=== PATIENT | male | born 1960 ===

== ENCOUNTER 2021-02-26 15:47 | Outpatient (RCR) | payer MEDICARE ==
[~2021-02-26 15:47] MED LIST: MINERAL OIL/PETROLAT/GLYCERI 6OZ BTL ONE
== END 2021-03-19 ==
LOC: WCC 15:47
PROVIDERS: ATTEND Internal Medicine Infectious Disease
DX: L03.115 Cellulitis of right lower limb (principal); S81.801A Unspecified open wound, right lower leg, initial encounter; R60.0 Localized edema; G80.9 Cerebral palsy, unspecified; I10 Essential (primary) hypertension; J45.998 Other asthma; Z74.01 Bed confinement status